=== PATIENT | female | born 1995 | race Caucasian/White ===

== ENCOUNTER 2020-03-17 12:19 | Emergency (ER) | payer SELFPAY ==
--- NOTE | 2020-03-17 12:29 | EDM.PDOC ---
ED HPI GENERAL MEDICAL PROBLEM - General Chief Complaint: NEWSSTAND VENDOR Problem Stated Complaint: CYST RUPTURE Time Seen by Provider: 03/17/20 12:22 Source of Information: Reports: Patient History Limitations: Reports: No Limitations - History of Present Illness INITIAL COMMENTS - FREE TEXT/NARRATIVE: HISTORY AND PHYSICAL: History of present illness: Patient is a 24-year-old female who presents to the emergency room with complaints of left lower quadrant pain. Patient initially was seen at [facility] for her complaint. She did have basic lab work and a CT of the abdomen and pelvis with contrast. CT showed free fluid in the pelvis and recommended she have an ultrasound for follow-up. [place] did not have capability of ultrasound at this time and transferred her by private vehicle to our facility for ultrasound evaluation. Patient in stable condition. Review of systems: As per history of present illness and below otherwise all systems reviewed and negative. Past medical history: As per history of present illness and as reviewed below otherwise noncontributory. Surgical history: As per history of present illness and as reviewed below otherwise non contributory. Social history: See social history for further information Family history: As per history of present illness and as reviewed below otherwise noncontributory. Physical exam: General: Well developed and well nourished. Alert and orientated x 3. Nontoxic in appearance and in no acute distress. Vital signs are stable and have been reviewed by me. Nursing notes were reviewed. HEENT: Atraumatic, normocephalic, pupils equal and reactive bilaterally, negative for conjunctival pallor or scleral icterus, mucous membranes moist, TMs normal bilaterally, throat clear, neck supple, nontender, trachea midline. No drooling or trismus noted. No meningeal signs. No hot potato voice noted. Lungs: Clear to auscultation, breath sounds equal bilaterally, chest nontender. Normal work of breathing, no accessory muscles used. Heart: S1S2, regular rate and rhythm without overt murmur Abdomen: Soft, nondistended, nontender. Negative for masses or hepatosplenomegaly. Negative for costovertebral tenderness. Pelvis: Stable nontender. Skin: Intact, warm, dry. No lesions or rashes noted. Hematologic: No petechiae or purpra. Mucosa appropriate color and normal nail bed color and refill. Extremities: Atraumatic, moves all extremities per self without difficulty or deficits, negative for cords or calf pain. Neurovascular unremarkable. Neuro: Awake, alert, oriented. Cranial nerves II through XII unremarkable. Cerebellum unremarkable. Motor and sensory unremarkable throughout. Exam nonfocal. Psychiatric: Mood and affect are appropriate. Normal thought process. Answering questions appropriately. Notes: 03/17/2020: Records from [facility] were sent with the patient. CBC with differential, CMP, lipase, PT/INR, UA, and urine are within normal limits. Impression on the CT of the abdomen and pelvis with IV contrast shows an indeterminate mass within the liver could represent a hemangioma. Follow-up with MRI is recommended. Large volume of free fluid in the pelvis may be from the recent cyst or follicle rupture. Consider pelvic ultrasound. Bladder wall thickening, correlate with urinalysis recommended. Moderate volume of stool is noted. No appendicitis is appreciated. Ultrasound shows follicular cysts in both ovaries. No suspicion for adnexal mass. No evidence for ovarian torsion. Small amount of free fluid in the recto vaginal pouch of Jarred, which likely indicates a recent ruptured cyst. Uterine corpus and endometrial complex are within normal limits. Patient states she feels improved, tender when she stands and moves around. I have spoken with the patient/caregiver and discussed today's findings, in addition to providing specific details for plan of care. Reassessment at the time of disposition demonstrates that the patient is in no acute distress. The patient has remained stable throughout the entire ED visit and is without objective evidence for acute process requiring urgent intervention or hospitalization. The patient is stable for discharge, counseling was provided and we discussed in great detail signs and symptoms that would prompt them to return to the Emergency Department. Medication, follow up and supportive care measures were reviewed and discussed. Voices understanding and is agreeable to plan of care. Denies any further questions or concerns at this time. Diagnostics: CBC, CMP, UA, U/S pelvis Therapeutics: Percocet Prescription: None Impression: Ruptured ovarian cyst Plan: 1. Today your lab work was normal. The ultrasound shows a likley ruptured cyts (not a hemorragic cyst) and is otherwise normal. 2. Gentle heat. Alternate Tylenol/Ibuprofen as needed. 3. We encourage you to follow up with your primary care provider and/or recommended specialist in the next few days for re-evaluation and further care/management. If your symptoms should worsen, new symptoms develop or any of the signs and symptoms we discussed should arise please return to the emergency room or call 911 (if needed). Definitive disposition and diagnosis as appropriate pending reevaluation and review of above. abd Pain Score (Numeric/FACES): 4 - Related Data Allergies Allergy/AdvReac Type Severity Reaction Status Date / Time No Known Allergies Allergy Verified 03/17/20 12:42 Home Meds: Home Meds . [No Known Home Meds] 03/17/20 [History] ED ROS GENERAL - Review of Systems Review Of Systems: Comprehensive ROS is negative, except as noted in HPI. ED EXAM, GI/ABD - Physical Exam Exam: See Below (See dictation) Course - Vital Signs Last Recorded V/S: Last Vital Signs Temp 98.8 F 03/17/20 12:38 Pulse 107 H 03/17/20 12:38 Resp 16 03/17/20 12:38 BP 138/78 03/17/20 12:38 Pulse Ox 96 03/17/20 12:38 - Orders/Labs/Meds Orders: Active Orders 24 hr Category Date Time Status UA RFX ESTIVEN AND CULT IF INDIC [URIN] Stat Lab 03/17/20 12:23 Stop Req Acetaminophen/oxyCODONE [Percocet 325-5 MG] Med 03/17/20 14:26 Once 1 tab PO ONETIME ONE Medication Orders Oxycodone/Acetaminophen (Percocet 325-5 Mg) 1 tab PO ONETIME ONE Stop: 03/17/20 14:27 Labs: Laboratory Tests 03/17/20 03/17/20 Range/Units 13:01 13:01 WBC 7.98 (4.0-11.0) K/uL RBC 4.71 (4.30-5.90) M/uL Hgb 13.2 (12.0-16.0) g/dL Hct 40.8 (36.0-46.0) % MCV 86.6 (80.0-98.0) fL MCH 28.0 (27.0-32.0) pg MCHC 32.4 (31.0-37.0) g/dL RDW Std Deviation 44.6 (28.0-62.0) fl RDW Coeff of Luis A 14 (11.0-15.0) % Plt Count 237 (150-400) K/uL MPV 9.90 (7.40-12.00) fL Neut % (Auto) 68.2 (48.0-80.0) % Lymph % (Auto) 21.7 (16.0-40.0) % Bowie % (Auto) 7.8 (0.0-15.0) % Eos % (Auto) 2.0 (0.0-7.0) % Baso % (Auto) 0.3 (0.0-1.5) % Neut # (Auto) 5.5 (1.4-5.7) K/uL Lymph # (Auto) 1.7 (0.6-2.4) K/uL Bowie # (Auto) 0.6 (0.0-0.8) K/uL Eos # (Auto) 0.2 (0.0-0.7) K/uL Baso # (Auto) 0.0 (0.0-0.1) K/uL Nucleated RBC % 0.0 /100WBC Nucleated RBCs # 0 K/uL Sodium 140 (136-145) mmol/L Potassium 4.0 (3.5-5.1) mmol/L Chloride 107 (98-107) mmol/L Carbon Dioxide 27.3 (21.0-32.0) mmol/L BUN 8 (7.0-18.0) mg/dL Creatinine 0.8 (0.6-1.0) mg/dL Est Cr Clr Drug Dosing TNP Estimated GFR (MDRD) > 60.0 ml/min Glucose 113 H (74-106) mg/dL Calcium 8.2 L (8.5-10.1) mg/dL Total Bilirubin 0.3 (0.2-1.0) mg/dL AST 18 (15-37) IU/L ALT 28 (14-63) IU/L Alkaline Phosphatase 50 (46-116) U/L Total Protein 6.7 (6.4-8.2) g/dL Albumin 3.6 (3.4-5.0) g/dL Globulin 3.1 (2.6-4.0) g/dL Albumin/Globulin Ratio 1.2 (0.9-1.6) Meds: Medications Generic Name Dose Route Start Last Admin Trade Name Freq PRN Reason Stop Dose Admin Oxycodone/Acetaminophen 1 tab 03/17/20 14:26 Percocet 325-5 Mg PO 03/17/20 14:27 ONETIME ONE Departure - Departure Time of Disposition: 14:25 Disposition: Home, Self-Care 01 Clinical Impression: Ruptured cyst of left ovary - Discharge Information Instructions: Ovarian Cyst, [id number] Referrals: PCP,None [Primary Care Provider] - Forms: ED Department Discharge Additional Instructions: The following information is given to patients seen in the emergency department who are being discharged to home. This information is to outline your options for follow-up care. We provide all patients seen in our emergency department with a follow-up referral. The need for follow-up, as well as the timing and circumstances, are variable depending upon the specifics of your emergency department visit. If you don't have a primary care physician on staff, we will provide you with a referral. We always advise you to contact your personal physician following an emergency department visit to inform them of the circumstance of the visit and for follow-up with them and/or the need for any referrals to a consulting specialist. The emergency department will also refer you to a specialist when appropriate. This referral assures that you have the opportunity for follow-up care with a specialist. All of these measure are taken in an effort to provide you with optimal care, which includes your follow-up. Under all circumstances we always encourage you to contact your private physician who remains a resource for coordinating your care. When calling for follow-up care, please make the office aware that this follow-up is from your recent emergency room visit. If for any reason you are refused follow-up, please contact the [facility] Emergency Department at and asked to speak to the emergency department charge nurse. [facility] [address] [place] [id number] [id number] Thank you for choosing the [facility] emergency department in [facility] for your medical needs today. It was a pleasure caring for you. Today you were seen in the emergency department for ovarian cyst. 1. Today your lab work was normal. The ultrasound shows a likely ruptured cyst (not a hemorrhagic cyst) and is otherwise normal. 2. Gentle heat. Alternate Tylenol/Ibuprofen as needed. 3. We encourage you to follow up with your primary care provider and/or re commended specialist in the next few days for re-evaluation and further care/management. If your symptoms should worsen, new symptoms develop or any of the signs and symptoms we discussed should arise please return to the emergency room or call 911 (if needed). Sepsis Event Note (ED) - Focused Exam Vital Signs: Vital Signs Temp Pulse Resp BP Pulse Ox 03/17/20 12:38 98.8 F 107 H 16 138/78 96 - My Orders Last 24 Hours: My Active Orders 03/17/20 12:23 UA RFX ESTIVEN AND CULT IF INDIC [URIN] Stat 03/17/20 14:26 Acetaminophen/oxyCODONE [Percocet 325-5 MG] 1 tab PO ONETIME ONE - Assessment/Plan Last 24 Hours: My Active Orders 03/17/20 12:23 UA RFX ESTIVEN AND CULT IF INDIC [URIN] Stat 03/17/20 14:26 Acetaminophen/oxyCODONE [Percocet 325-5 MG] 1 tab PO ONETIME ONE
[2020-03-17 13:49] LABS: BLOOD UREA NITROGEN,BUN 8 mg/dL (7.0-18.0); CARBON DIOXIDE,CO2 27.3 mmol/L (21.0-32.0); CHLORIDE,CL 107 mmol/L (98-107); GLUCOSE RANDOM 113 mg/dL (74-106); SODIUM,NA 140 mmol/L (136-145)
--- NOTE | 2020-03-17 14:16 | US ---
HISTORY: Left lower quadrant abdominal pain. COMPARISON: None. TECHNIQUE: Pelvic ultrasound. Endovaginal imaging of the pelvis was obtained to better evaluate the adnexa and endometrial complex. Color/spectral Doppler was performed to evaluate for ovarian torsion. Findings: Uterine corpus measures 8.4 x 5.2 x 6.9 cm. There is no endometrial or myometrial mass. The endometrial complex measures 11 millimeters in thickness. There is a small amount of free fluid in the pelvis. The left ovary measures 3.9 x 2.9 x 4.2 cm. There is a benign follicular cyst in the left ovary with posterior acoustic enhancement measuring 2.4 cm. The right ovary measures 2.5 x 2.0 x 2.4 cm. There is no suspicious not mass. There is no evidence on grayscale imaging, color/spectral Doppler, for ovarian torsion. Normal, low resistance blood flow is preserved to both ovaries on color/spectral Doppler. Impression: 1. Follicular cysts in both ovaries. 2. There is no suspicious adnexal mass. 3. No evidence for ovarian torsion on grayscale imaging, or color/spectral Doppler. 4. Small amount of free fluid in the rectovaginal pouch of Jarred, which likely indicates a recently ruptured cyst. 5. Uterine corpus/endometrial complex are within normal limits. Dictated by Carlos Jackson MD @ Mar 17 2020 2:11PM Signed by Dr. Carlos Jackson @ Mar 17 2020 2:15PM
[2020-03-17] MEDS ORDERED: Acetaminophen/oxyCODONE 325-5 MG Tab PO ONE (14:26)
== END 2020-03-17 14:53 | disposition home or self-care (01) ==
LOC: MW.ED 12:19
DX: N83.202 Unspecified ovarian cyst, left side (principal)
CPT/HCPCS: 36415; 76857; 80053; 85025; 99284; A9270